=== PATIENT | male | born 1955 | race Caucasian/White ===

== ENCOUNTER 2021-02-02 21:58 | Emergency (ER) | payer OTHER ==
[~2021-02-02] VITALS: Ht 195.6 cm; Wt 95.3 kg
[2021-02-02 22:11] VITALS: BP 128/86
[2021-02-02 23:14] LABS: Basophils # (auto) 0.1 10 ^3/uL (0-0.2); Basophils % (auto) 0.8 % (0.0-2.0); Eosinophils # (auto) 0.3 10 ^3/uL (0-0.8); Eosinophils % (auto) 3.1 % (0.0-7.0); Hematocrit 45.6 % (41.0-53.0); Hemoglobin 16.2 g/dL (13.5-17.5); Lymphocytes % (auto) 27.8 % (10.0-50.0); Mean Corpuscular Hgb Conc. 35.5 g/dL (32.0-36.0); Mean Corpuscular Volume 84.4 fL (80.0-100.0); Monocytes # (auto) 0.9 10 ^3/uL (0-1.3); Monocytes % (auto) 7.9 % (0.0-12.0); Neutrophils # (auto) 6.6 10 ^3/uL (1.6-8.6); Neutrophils % (auto) 60.4 % (37.0-80.0); Nucleated Red Blood Cells % 0.1 %; Red Cell Distribution Width 13.4 % (11.8-14.3); White Blood Cell 10.9 10^3/uL (4.4-10.8)
[2021-02-02] MEDS ORDERED: ALBUTEROL SULF 2.5 MG/0.5ML(0.5%) NEB SOLN NEB ONE (23:15)
[2021-02-02] MEDS ORDERED: IPRATROPIUM BROM 0.5 MG/2.5ML INH SOL NEB ONE (23:15)
[2021-02-02 23:51] LABS: Albumin 3.8 g/dL (3.4-5.0); Anion Gap 5 (5-15); BUN/Creatinine Ratio 15.5; Blood Urea Nitrogen 16 mg/dL (7-18); Calcium 9.7 mg/dL (8.5-10.1); Carbon Dioxide 28 mmol/L (21-32); Chloride 103 mmol/L (98-107); GFR African American 93 mL/min; GFR Non-African American 77 mL/min; Glucose 230 mg/dL (74-106); Potassium 3.9 mmol/L (3.5-5.1); Sodium 136 mmol/L (136-145)
[2021-02-03 00:01] LABS: Alanine Aminotransferase 29 U/L (16-61); Alkaline Phosphatase 76 U/L (45-117); Aspartate Aminotransferase 11 U/L (15-37); Bilirubin, Total 0.3 mg/dL (0.2-1.0); Total Protein 7.5 g/dL (6.4-8.2)
== END 2021-02-03 00:06 | disposition left against medical advice (07) ==
LOC: ER 21:58
DX: R07.9 Chest pain, unspecified (principal); R06.02 Shortness of breath
CPT/HCPCS: 36415; 71045; 80053; 82962; 83735; 83880; 84484; 85025; 93005; 94640; 99285; J7644

== ENCOUNTER 2021-09-14 15:33 | Inpatient (IN) | payer OTHER ==
[~2021-09-14] VITALS: Ht 195.6 cm; Wt 89.4 kg
[2021-09-14] MEDS ORDERED: HYDROmorphone HCL 2 MG/ML VL IV ONE ×2 (16:15→19:15)
[2021-09-14] MEDS ORDERED: ONDANSETRON HCL 4 MG/2 ML VIAL IV ONE (16:15)
[2021-09-14 17:15] LABS: Basophils # (auto) 0 10 ^3/uL (0-0.2); Basophils % (auto) 0.2 % (0.0-2.0); Eosinophils # (auto) 0.1 10 ^3/uL (0-0.8); Eosinophils % (auto) 0.3 % (0.0-7.0); Hemoglobin 12.6 g/dL (13.5-17.5); Lymphocytes # (auto) 1.7 10 ^3/uL (0.4-5.4); Lymphocytes % (auto) 8.5 % (10.0-50.0); Mean Corpuscular Hemoglobin 29.5 pg (28.0-32.0); Mean Corpuscular Hgb Conc. 34.1 g/dL (32.0-36.0); Mean Corpuscular Volume 86.4 fL (80.0-100.0); Monocytes # (auto) 2.1 10 ^3/uL (0-1.3); Monocytes % (auto) 10.5 % (0.0-12.0); Neutrophils # (auto) 15.7 10 ^3/uL (1.6-8.6); Neutrophils % (auto) 80.5 % (37.0-80.0); Red Blood Cells 4.28 10^6/uL (4.5-5.90); Red Cell Distribution Width 13.2 % (11.8-14.3); White Blood Cell 19.6 10^3/uL (4.4-10.8)
[2021-09-14] MEDS ORDERED: VANCOMYCIN 1GM/250ML 250 ML IV ONE (17:15)
[2021-09-14] MEDS ORDERED: DEXTROSE (50%) 50ML SYRG IV PRN (17:45)
[2021-09-14] MEDS ORDERED: VANCOMYCIN PER PHARMACY 0 MG IV SCH (17:45)
[2021-09-14] MEDS ORDERED: NITROGLYCERIN 0.4 MG SL TAB SL PRN (17:45)
[2021-09-14] MEDS ORDERED: SODIUM CHLORIDE 0.9% 1,000 ML IV ONE (17:45)
[2021-09-14] MEDS ORDERED: MORPHINE SULFATE INJECTION 2 MG/ML SYRG IV PRN (17:45)
[2021-09-14] MEDS ORDERED: hydrALAZINE HCL 20 MG/ML VL IV PRN (17:45)
[2021-09-14] MEDS ORDERED: MEROPENEM 1GM IVPB 100 ML IV ONE (17:45)
[2021-09-14 17:48] LABS: Albumin 2.7 g/dL (3.4-5.0); Anion Gap 8 (5-15); Blood Urea Nitrogen 24 mg/dL (7-18); Calcium 9.1 mg/dL (8.5-10.1); Carbon Dioxide 28 mmol/L (21-32); Chloride 99 mmol/L (98-107); Glucose 106 mg/dL (74-106); Potassium 3.9 mmol/L (3.5-5.1); Sodium 135 mmol/L (136-145)
[2021-09-14 17:56] LABS: Alanine Aminotransferase 28 U/L (16-61); Alkaline Phosphatase 112 U/L (45-117); Aspartate Aminotransferase 30 U/L (15-37); BUN/Creatinine Ratio 18.6; Bilirubin, Total 0.8 mg/dL (0.2-1.0); GFR African American 72 mL/min; GFR Non-African American 59 mL/min; Total Protein 7.5 g/dL (6.4-8.2)
[2021-09-14] MEDS ORDERED: SODIUM CHLORIDE 0.9% 2,700 ML IV ONE (18:00)
[2021-09-14] MEDS: VANCOMYCIN 1GM/250ML 250 ML IV SCH ×2 (18:06→19:10)
[2021-09-14 18:29] LABS: CRP High Sensitivity > 19.0 mg/dL (< 0.3)
[2021-09-14 20:03] LABS: INR 1.12 (0.9-1.15)
[2021-09-14] MEDS: ACCU-CHEK COMFORT CURVE STRIP VI SCH (22:05)
[2021-09-14] MEDS: InsuLIN REG 1unit/0.01ml Soln (100units/ml) SC SCH (22:10)
[2021-09-14] MEDS: MEROPENEM 1GM IVPB 100 ML IV SCH (23:23)
[2021-09-15 00:50] VITALS: BP 147/73
[2021-09-15] MEDS: HYDROcodone-ACET 10/325MG TAB PO PRN ×3 (01:11→14:07)
[2021-09-15 05:12] VITALS: BP 127/69
[2021-09-15] MEDS: VANCOMYCIN 1GM/250ML 250 ML IV SCH ×2 (05:29→18:04)
[2021-09-15] MEDS: InsuLIN REG 1unit/0.01ml Soln (100units/ml) SC SCH ×4 (06:23→22:48)
[2021-09-15] MEDS: ACCU-CHEK COMFORT CURVE STRIP VI SCH ×4 (06:23→22:47)
[2021-09-15 06:35] LABS: Basophils # (auto) 0.1 10 ^3/uL (0-0.2); Basophils % (auto) 0.3 % (0.0-2.0); Eosinophils # (auto) 0.1 10 ^3/uL (0-0.8); Eosinophils % (auto) 0.4 % (0.0-7.0); Hematocrit 33.7 % (41.0-53.0); Hemoglobin 11.8 g/dL (13.5-17.5); Lymphocytes # (auto) 1.5 10 ^3/uL (0.4-5.4); Lymphocytes % (auto) 7.4 % (10.0-50.0); Mean Corpuscular Hemoglobin 30.4 pg (28.0-32.0); Mean Corpuscular Volume 86.9 fL (80.0-100.0); Monocytes # (auto) 2.4 10 ^3/uL (0-1.3); Monocytes % (auto) 11.6 % (0.0-12.0); Neutrophils # (auto) 16.3 10 ^3/uL (1.6-8.6); Neutrophils % (auto) 80.3 % (37.0-80.0); Red Blood Cells 3.88 10^6/uL (4.5-5.90); Red Cell Distribution Width 13.1 % (11.8-14.3); White Blood Cell 20.3 10^3/uL (4.4-10.8)
[2021-09-15 06:47] LABS: Potassium 4.6 mmol/L (3.5-5.1)
[2021-09-15 06:52] LABS: Albumin 2.3 g/dL (3.4-5.0); BUN/Creatinine Ratio 22.7; Calcium 9.1 mg/dL (8.5-10.1)
[2021-09-15 07:03] LABS: Bilirubin, Total 0.7 mg/dL (0.2-1.0); Total Protein 6.4 g/dL (6.4-8.2)
[2021-09-15] MEDS: MEROPENEM 1GM IVPB 100 ML IV SCH ×3 (07:07→22:47)
[2021-09-15 08:41] VITALS: BP 144/79
[2021-09-15] MEDS ORDERED: IOHEXOL 350 MG/ML 100ML IJ ONE (10:25)
[2021-09-15] MEDS: HYDROmorphone HCL 2 MG/ML VL IV PRN ×4 (10:50→20:38)
[2021-09-15 12:33] VITALS: BP 127/66
[2021-09-15 16:52] VITALS: BP 115/60
[2021-09-15 22:00] VITALS: BP 132/76
[2021-09-16] MEDS: HYDROmorphone HCL 2 MG/ML VL IV PRN ×3 (04:55→20:40)
[2021-09-16 04:57] VITALS: BP 137/72
[2021-09-16] MEDS: MEROPENEM 1GM IVPB 100 ML IV SCH ×3 (06:42→23:52)
[2021-09-16] MEDS: ACCU-CHEK COMFORT CURVE STRIP VI SCH ×4 (06:42→21:40)
[2021-09-16] MEDS: InsuLIN REG 1unit/0.01ml Soln (100units/ml) SC SCH ×4 (06:43→21:54)
[2021-09-16 07:16] LABS: Basophils # (auto) 0.1 10 ^3/uL (0-0.2); Basophils % (auto) 0.3 % (0.0-2.0); Eosinophils # (auto) 0 10 ^3/uL (0-0.8); Eosinophils % (auto) 0.2 % (0.0-7.0); Hematocrit 33.8 % (41.0-53.0); Hemoglobin 11.6 g/dL (13.5-17.5); Lymphocytes # (auto) 1.2 10 ^3/uL (0.4-5.4); Lymphocytes % (auto) 6.2 % (10.0-50.0); Mean Corpuscular Hemoglobin 29.6 pg (28.0-32.0); Mean Corpuscular Hgb Conc. 34.1 g/dL (32.0-36.0); Mean Corpuscular Volume 86.8 fL (80.0-100.0); Monocytes # (auto) 1.4 10 ^3/uL (0-1.3); Monocytes % (auto) 7.7 % (0.0-12.0); Neutrophils # (auto) 16.1 10 ^3/uL (1.6-8.6); Neutrophils % (auto) 85.6 % (37.0-80.0); Nucleated Red Blood Cells % 0.1 %; Red Cell Distribution Width 13.4 % (11.8-14.3); White Blood Cell 18.8 10^3/uL (4.4-10.8)
[2021-09-16 07:27] LABS: Calcium 9.1 mg/dL (8.5-10.1)
[2021-09-16 07:33] LABS: Albumin 2.1 g/dL (3.4-5.0); BUN/Creatinine Ratio 26.4; Bilirubin, Total 0.6 mg/dL (0.2-1.0); Total Protein 6.2 g/dL (6.4-8.2)
[2021-09-16] MEDS: HYDROcodone-ACET 10/325MG TAB PO PRN (07:49)
[2021-09-16 08:48] VITALS: BP 139/79
[2021-09-16] MEDS: VANCOMYCIN 1GM/250ML 250 ML IV SCH ×2 (10:00→17:57)
[2021-09-16] MEDS ORDERED: METF-370 PO (12:30)
[2021-09-16] MEDS ORDERED: ASPI-543 PO (12:30)
[2021-09-16] MEDS ORDERED: GEMF600T PO (12:30)
[2021-09-16] MEDS ORDERED: TAM04C PO (12:30)
[2021-09-16] MEDS ORDERED: CITA-73 PO (12:30)
[2021-09-16] MEDS ORDERED: LOSA-39 PO (12:30)
[2021-09-16] MEDS ORDERED: ATOR-47 PO (12:30)
[2021-09-16 12:39] VITALS: BP 146/90
[2021-09-16] MEDS ORDERED: CITALOPRAM HYDROBR 20 MG TAB PO ONE (13:45)
[2021-09-16 13:49] VITALS: BP 165/90
[2021-09-16 16:45] VITALS: BP 144/88
[2021-09-16] MEDS: TAMSULOSIN HYDROCHLORIDE 0.4 MG CAP PO SCH (17:57)
[2021-09-16] MEDS: ATORVASTATIN 20 MG TAB PO SCH (21:40)
[2021-09-16] MEDS: GEMFIBROZIL 600 MG TAB PO SCH (21:41)
[2021-09-16 21:44] VITALS: BP 114/72
[2021-09-17] MEDS: HYDROmorphone HCL 2 MG/ML VL IV PRN (02:24)
[2021-09-17 05:00] VITALS: BP 138/81
[2021-09-17 06:09] LABS: Basophils # (auto) 0.1 10 ^3/uL (0-0.2); Basophils % (auto) 0.2 % (0.0-2.0); Eosinophils # (auto) 0 10 ^3/uL (0-0.8); Eosinophils % (auto) 0.2 % (0.0-7.0); Hematocrit 31.8 % (41.0-53.0); Hemoglobin 10.7 g/dL (13.5-17.5); Lymphocytes # (auto) 1.2 10 ^3/uL (0.4-5.4); Lymphocytes % (auto) 5.6 % (10.0-50.0); Mean Corpuscular Hemoglobin 29.1 pg (28.0-32.0); Mean Corpuscular Hgb Conc. 33.8 g/dL (32.0-36.0); Monocytes % (auto) 9.2 % (0.0-12.0); Neutrophils # (auto) 18.7 10 ^3/uL (1.6-8.6); Neutrophils % (auto) 84.8 % (37.0-80.0); Nucleated Red Blood Cells % 0.1 %; Red Cell Distribution Width 13.2 % (11.8-14.3)
[2021-09-17] MEDS: VANCOMYCIN 1GM/250ML 250 ML IV SCH ×2 (06:15→18:00)
[2021-09-17] MEDS: ACCU-CHEK COMFORT CURVE STRIP VI SCH ×4 (06:15→21:20)
[2021-09-17] MEDS: InsuLIN REG 1unit/0.01ml Soln (100units/ml) SC SCH ×4 (06:28→21:48)
[2021-09-17 06:44] LABS: Potassium 3.9 mmol/L (3.5-5.1)
[2021-09-17 06:56] LABS: BUN/Creatinine Ratio 23.1; Bilirubin, Total 0.6 mg/dL (0.2-1.0); Calcium 8.6 mg/dL (8.5-10.1); Total Protein 6.1 g/dL (6.4-8.2)
[2021-09-17] MEDS ORDERED: ceFAZolin 1GM/50ML 100 ML IV ONE (08:12)
[2021-09-17] MEDS ORDERED: ceFAZolin 1GM VL ONE (08:29)
[2021-09-17] MEDS ORDERED: MIDAZOLAM HCL 2MG/2ML 2ml VIAL (1mg/ml) ONE (08:42)
[2021-09-17] MEDS ORDERED: fentaNYL CITRATE 5 ML ONE (08:42)
[2021-09-17] MEDS ORDERED: PROPOFOL 10 MG/ML 20 ML IV ONE (09:11)
[2021-09-17] MEDS ORDERED: ONDANSETRON HCL 4 MG/2 ML VIAL ONE (09:11)
[2021-09-17] MEDS ORDERED: ONDANSETRON HCL 4 MG/2 ML VIAL IV PRN (09:30)
[2021-09-17] MEDS ORDERED: HYDROmorphone HCL 2 MG/ML VL IV PRN ×2 (09:30)
[2021-09-17] MEDS: GEMFIBROZIL 600 MG TAB PO SCH ×2 (10:00→21:20)
[2021-09-17] MEDS: CITALOPRAM HYDROBR 20 MG TAB PO SCH (10:00)
[2021-09-17] MEDS: MEROPENEM 1GM IVPB 100 ML IV SCH ×3 (10:00→22:19)
[2021-09-17] MEDS: LOSARTAN POTASSIUM 50 MG TAB PO SCH (10:00)
[2021-09-17 10:29] VITALS: BP 152/71
[2021-09-17] MEDS: HYDROcodone-ACET 10/325MG TAB PO PRN ×2 (12:25→19:02)
[2021-09-17 13:00] VITALS: BP 146/74
[2021-09-17 17:00] VITALS: BP 143/80
[2021-09-17] MEDS: TAMSULOSIN HYDROCHLORIDE 0.4 MG CAP PO SCH (18:00)
[2021-09-17] MEDS: ATORVASTATIN 20 MG TAB PO SCH (21:19)
[2021-09-17 22:32] VITALS: BP 129/79
[2021-09-18 04:11] VITALS: BP 140/77
[2021-09-18 05:27] LABS: Basophils # (auto) 0.1 10 ^3/uL (0-0.2); Eosinophils # (auto) 0.1 10 ^3/uL (0-0.8); Eosinophils % (auto) 0.4 % (0.0-7.0); Hemoglobin 10.9 g/dL (13.5-17.5); Red Cell Distribution Width 13.6 % (11.8-14.3)
[2021-09-18 05:30] LABS: Basophils % (auto) 0.7 % (0.0-2.0); Hematocrit 31.5 % (41.0-53.0); Lymphocytes # (auto) 1.6 10 ^3/uL (0.4-5.4); Lymphocytes % (auto) 8.1 % (10.0-50.0); Mean Corpuscular Hemoglobin 29.6 pg (28.0-32.0); Mean Corpuscular Hgb Conc. 34.7 g/dL (32.0-36.0); Mean Corpuscular Volume 85.3 fL (80.0-100.0); Monocytes # (auto) 1.5 10 ^3/uL (0-1.3); Monocytes % (auto) 7.9 % (0.0-12.0); Neutrophils # (auto) 16.2 10 ^3/uL (1.6-8.6); Neutrophils % (auto) 82.9 % (37.0-80.0); Nucleated Red Blood Cells % 0.2 %; Red Blood Cells 3.69 10^6/uL (4.5-5.90); White Blood Cell 19.5 10^3/uL (4.4-10.8)
[2021-09-18 05:46] LABS: Albumin 1.9 g/dL (3.4-5.0); Calcium 8.4 mg/dL (8.5-10.1); Potassium 3.9 mmol/L (3.5-5.1)
[2021-09-18 05:51] LABS: BUN/Creatinine Ratio 23.1; Bilirubin, Total 0.6 mg/dL (0.2-1.0); Total Protein 5.9 g/dL (6.4-8.2)
[2021-09-18] MEDS: InsuLIN REG 1unit/0.01ml Soln (100units/ml) SC SCH ×4 (06:09→22:05)
[2021-09-18] MEDS: VANCOMYCIN 1GM/250ML 250 ML IV SCH ×2 (06:14→18:00)
[2021-09-18] MEDS: ACCU-CHEK COMFORT CURVE STRIP VI SCH ×4 (06:15→22:04)
[2021-09-18] MEDS: MEROPENEM 1GM IVPB 100 ML IV SCH ×3 (07:09→22:13)
[2021-09-18] MEDS: HYDROcodone-ACET 10/325MG TAB PO PRN ×2 (07:09→20:38)
[2021-09-18 09:00] VITALS: BP 155/90
[2021-09-18] MEDS: CITALOPRAM HYDROBR 20 MG TAB PO SCH (10:00)
[2021-09-18] MEDS: GEMFIBROZIL 600 MG TAB PO SCH ×2 (10:00→21:18)
[2021-09-18] MEDS: LOSARTAN POTASSIUM 50 MG TAB PO SCH (10:00)
[2021-09-18] MEDS: HYDROmorphone HCL 2 MG/ML VL IV PRN ×3 (11:35→21:46)
[2021-09-18 13:00] VITALS: BP 140/80
[2021-09-18 17:00] VITALS: BP 172/94
[2021-09-18] MEDS: TAMSULOSIN HYDROCHLORIDE 0.4 MG CAP PO SCH (18:00)
[2021-09-18 18:15] VITALS: BP 126/67
[2021-09-18] MEDS: ATORVASTATIN 20 MG TAB PO SCH (21:18)
[2021-09-18 22:00] VITALS: BP 145/82
[2021-09-18] MEDS ORDERED: SENNA 8.6 MG TAB PO PRN (22:00)
[2021-09-19 05:00] VITALS: BP 153/74
[2021-09-19] MEDS: VANCOMYCIN 1GM/250ML 250 ML IV SCH (05:19)
[2021-09-19] MEDS: HYDROmorphone HCL 2 MG/ML VL IV PRN ×4 (05:32→21:47)
[2021-09-19 06:01] LABS: Basophils # (auto) 0.1 10 ^3/uL (0-0.2); Hemoglobin 11.4 g/dL (13.5-17.5); Monocytes # (auto) 1.5 10 ^3/uL (0-1.3); Nucleated Red Blood Cells % 0.1 %; Red Cell Distribution Width 13.3 % (11.8-14.3)
[2021-09-19 06:04] LABS: Basophils % (auto) 0.5 % (0.0-2.0); Eosinophils # (auto) 0.1 10 ^3/uL (0-0.8); Eosinophils % (auto) 0.9 % (0.0-7.0); Hematocrit 32.7 % (41.0-53.0); Lymphocytes # (auto) 1.9 10 ^3/uL (0.4-5.4); Lymphocytes % (auto) 11.4 % (10.0-50.0); Mean Corpuscular Hemoglobin 30.1 pg (28.0-32.0); Monocytes % (auto) 9.3 % (0.0-12.0); Neutrophils # (auto) 12.6 10 ^3/uL (1.6-8.6); Neutrophils % (auto) 77.9 % (37.0-80.0); White Blood Cell 16.2 10^3/uL (4.4-10.8)
[2021-09-19] MEDS: InsuLIN REG 1unit/0.01ml Soln (100units/ml) SC SCH ×4 (06:06→21:22)
[2021-09-19] MEDS: ACCU-CHEK COMFORT CURVE STRIP VI SCH ×4 (06:07→21:22)
[2021-09-19 06:09] LABS: BUN/Creatinine Ratio 21.9; Calcium 8.8 mg/dL (8.5-10.1); Potassium 4.4 mmol/L (3.5-5.1)
[2021-09-19 06:12] LABS: Bilirubin, Total 0.4 mg/dL (0.2-1.0); Total Protein 6.2 g/dL (6.4-8.2)
[2021-09-19 06:25] LABS: INR 1.14 (0.9-1.15); Partial Thromboplastin Time 33.3 sec (23.6-33.0)
[2021-09-19] MEDS: MEROPENEM 1GM IVPB 100 ML IV SCH (06:26)
[2021-09-19 08:51] VITALS: BP 148/84
[2021-09-19] MEDS: LOSARTAN POTASSIUM 50 MG TAB PO SCH (10:00)
[2021-09-19] MEDS: GEMFIBROZIL 600 MG TAB PO SCH ×2 (10:00→21:21)
[2021-09-19] MEDS: CITALOPRAM HYDROBR 20 MG TAB PO SCH (10:00)
[2021-09-19] MEDS ORDERED: CEFT2INJ IV (12:22)
[2021-09-19] MEDS ORDERED: INSREGI SC (12:22)
[2021-09-19] MEDS ORDERED: HYDR-4798 PO (12:22)
[2021-09-19 13:00] VITALS: BP 162/89
[2021-09-19] MEDS ORDERED: LIDOCAINE 1% (LOCAL ANESTH.) PF 5ml SDV ID ONE (15:00)
[2021-09-19 17:00] VITALS: BP 160/72
[2021-09-19] MEDS: TAMSULOSIN HYDROCHLORIDE 0.4 MG CAP PO SCH (17:24)
[2021-09-19] MEDS: HYDROcodone-ACET 10/325MG TAB PO PRN (18:55)
[2021-09-19] MEDS ORDERED: LACTULOSE 20Gm/30ML SOLN PO ONE (21:00)
[2021-09-19] MEDS: SODIUM CHLOR 0.9% PF (SALINE LOCK) 10ML VIAL/SYR IV SCH (21:20)
[2021-09-19] MEDS: ATORVASTATIN 20 MG TAB PO SCH (21:21)
[2021-09-19 22:00] VITALS: BP 160/77
[2021-09-20 05:00] VITALS: BP 170/79
[2021-09-20] MEDS: HYDROmorphone HCL 2 MG/ML VL IV PRN (06:00)
[2021-09-20] MEDS: ACCU-CHEK COMFORT CURVE STRIP VI SCH ×2 (06:01→12:09)
[2021-09-20] MEDS: InsuLIN REG 1unit/0.01ml Soln (100units/ml) SC SCH ×2 (06:06→12:06)
[2021-09-20 06:20] LABS: Basophils # (auto) 0.1 10 ^3/uL (0-0.2); Basophils % (auto) 0.6 % (0.0-2.0); Eosinophils # (auto) 0 10 ^3/uL (0-0.8); Eosinophils % (auto) 0.1 % (0.0-7.0); Hematocrit 34.5 % (41.0-53.0); Hemoglobin 11.8 g/dL (13.5-17.5); Lymphocytes # (auto) 1.3 10 ^3/uL (0.4-5.4); Mean Corpuscular Hemoglobin 29.5 pg (28.0-32.0); Mean Corpuscular Hgb Conc. 34.3 g/dL (32.0-36.0); Monocytes % (auto) 4.6 % (0.0-12.0); Neutrophils # (auto) 19.8 10 ^3/uL (1.6-8.6); Neutrophils % (auto) 88.7 % (37.0-80.0); Red Blood Cells 4.02 10^6/uL (4.5-5.90); Red Cell Distribution Width 13.2 % (11.8-14.3); White Blood Cell 22.3 10^3/uL (4.4-10.8)
[2021-09-20 06:36] LABS: Albumin 2.2 g/dL (3.4-5.0); Calcium 9.1 mg/dL (8.5-10.1); Potassium 4.2 mmol/L (3.5-5.1)
[2021-09-20 06:41] LABS: Bilirubin, Total 0.6 mg/dL (0.2-1.0); Total Protein 6.3 g/dL (6.4-8.2)
[2021-09-20] MEDS ORDERED: CEFTRIAXONE SODIUM 2 GM in D5W 5% 50 ML IV SCH (10:00)
[2021-09-20] MEDS: CITALOPRAM HYDROBR 20 MG TAB PO SCH (10:06)
[2021-09-20] MEDS: SODIUM CHLOR 0.9% PF (SALINE LOCK) 10ML VIAL/SYR IV SCH (10:06)
[2021-09-20] MEDS: GEMFIBROZIL 600 MG TAB PO SCH (10:07)
[2021-09-20] MEDS: LOSARTAN POTASSIUM 50 MG TAB PO SCH (10:07)
[2021-09-20] MEDS ORDERED: LIDOCAINE 2% JELLY 11ml (GLYDO) UR ONE (13:30)
[2021-09-20 15:54] VITALS: BP 146/71
== END 2021-09-20 16:05 | DRG 871 ==
LOC: ER 15:33 → TELE 17:42 → TELE-WESTW 23:03
PROVIDERS: ADMIT Internal Medicine; ATTEND Internal Medicine
PROC: 0Y9M0ZZ Drainage of Right Foot, Open Approach (ICD-10-PCS; principal; 2021-09-17 08:44)
PROC: 02HV33Z Insertion of Infusion Device into Superior Vena Cava, Percutaneous Approach (ICD-10-PCS; 2021-09-19)
PROC: B548ZZA Ultrasonography of Superior Vena Cava, Guidance (ICD-10-PCS; 2021-09-19)
DX: A40.9 Streptococcal sepsis, unspecified (principal); A48.0 Gas gangrene; L03.115 Cellulitis of right lower limb; L02.611 Cutaneous abscess of right foot; N13.8 Other obstructive and reflux uropathy; I25.10 Atherosclerotic heart disease of native coronary artery without angina pectoris; I10 Essential (primary) hypertension; K59.00 Constipation, unspecified; N40.1 Benign prostatic hyperplasia with lower urinary tract symptoms; Z20.822 Contact with and (suspected) exposure to COVID-19; F41.9 Anxiety disorder, unspecified; E11.9 Type 2 diabetes mellitus without complications; Z95.1 Presence of aortocoronary bypass graft; Z88.2 Allergy status to sulfonamides; Z79.899 Other long term (current) drug therapy
CPT/HCPCS: 36415; 36569; 71045; 73700; 73718; 80053; 80202; 82962; 83036; 83605; 85025; 85610; 85652; 85730; 86141; 86850; 86900; 86901; 87040; 87070; 87075; 87077; 87081; 87205; 93005; 96361; 96365; 96366; 96368; 96372; 96375; 96376; 99291; 99292; G0378; J0690; J0696; J1815; J2185; J2250; J2405; J2704; J7060